=== PATIENT | male | born 1970 | race Two or more races ===

== ENCOUNTER 2020-07-08 19:18 | Inpatient (IN) | payer OTHER ==
[~2020-07-08] VITALS: Ht 175.3 cm; Wt 154.2 kg
--- NOTE | 2020-07-08 19:45 | NUR ---
SE RECIBE PACIENTE ALERTA, ORIENTADO X 3 ESFERAS REFIERE TENER FIEBRE, TOS Y DIFICULTAD RESPIRATORIA.
--- NOTE | 2020-07-08 22:08 | NUR ---
SE ORIENTA PTE SOBRE TX MEDICO EL CUAL REFIERE ENTENDER.SE LE EXTRAEN MUESTRAS,SE CANALIZA Y SE NOTIFICA PLACA PENDIENTE,SE NOTIFICAN ABG A ISAURA.
--- NOTE | 2020-07-09 07:47 | NUR ---
SE RECIBE MASCULINO ALERTA Y ORIENTADA POR ERICK ESFERAS,EN BELINDA CON BARANDAS SGEURAS Y ELEVADAS. AREA DE VENOPUNCION ANIRUDH DE EDEMA O ENROJECIMIENTO. SE MANTIENE EN ESPERA DE MEDICO CONSULTADO DR XAVIRE PTE SE MANTIENE EN OBSERVACION Y BAJO TRATAMIENTO
[2020-07-20] MEDS ORDERED: LOSARTAN-HCTZ1 EAC2 PO (18:02)
[2020-07-20] MEDS ORDERED: NIFEDIPINE ER30 MG PO (18:03)
== END 2020-07-20 18:22 | disposition home or self-care (01) | DRG 179 ==
LOC: ER 19:18 → SEC-K 07-09 11:26 → MEDJ 07-09 11:26 → MEDI 07-09 11:39 → MEDJ 07-09 11:39
PROVIDERS: ADMIT Internal Medicine; ATTEND Internal Medicine
PROC: 3E0F7SF Introduction of Other Gas into Respiratory Tract, Via Natural or Artificial Opening (ICD-10-PCS; 2020-07-09)
PROC: 4A12X4Z Monitoring of Cardiac Electrical Activity, External Approach (ICD-10-PCS; 2020-07-09)
PROC: 4A033R1 Measurement of Arterial Saturation, Peripheral, Percutaneous Approach (ICD-10-PCS; principal; 2020-07-12)
PROC: 02HV33Z Insertion of Infusion Device into Superior Vena Cava, Percutaneous Approach (ICD-10-PCS; 2020-07-12)
DX: U07.1 COVID-19 (principal); E66.01 Morbid (severe) obesity due to excess calories; R09.02 Hypoxemia; I10 Essential (primary) hypertension

== ENCOUNTER 2023-07-28 00:38 | Emergency (ER) | payer OTHER ==
[~2023-07-28] VITALS: Ht 167.6 cm; Wt 181.4 kg
[~2023-07-28 00:38] MED LIST: LOSARTAN-HCTZ1 EAC2 PO; NIFEDIPINE ER30 MG PO
[2023-07-28 02:02] LABS: ABG PH 7.403 (7.35-7.45); ABG PO2 65.3 mmHg (80-100); BASE EXCESS -1.3 mmol/l; BICARBONATE 23.1 mmol/l (23-25); SaO2 92.5 %; Tco2 24.3 mmol/l; o2 21 %
[2023-07-28 02:03] LABS: allen test SATISFACTORY; puncture site RADIAL RIGHT
[2023-07-28] MEDS ORDERED: PEPCID40 MG PO (05:33)
[2023-07-28] MEDS ORDERED: BENADRYL25 MG PO (05:33)
[2023-07-28] MEDS ORDERED: MEDROL8 MG PO (05:33)
== END 2023-07-28 05:39 ==
LOC: ER 00:39
PROVIDERS: General Practice
DX: T78.40XA Allergy, unspecified, initial encounter (principal)

== ENCOUNTER 2023-11-16 13:34 | Emergency (ER) | payer OTHER ==
[~2023-11-16] VITALS: Ht 175.3 cm; Wt 161.0 kg
[~2023-11-16 13:34] MED LIST changes: +BENADRYL25 MG PO; +MEDROL8 MG PO; +PEPCID40 MG PO
[2023-11-16] MEDS ORDERED: ACETAMINOPHEN 500 MG GEL..CAP PO STA (16:23)
[2023-11-16] MEDS ORDERED: DEXAMETHASONE SODIUM PHOSPHATE 4 MG/ML VIAL IM STA (16:23)
[2023-11-16] MEDS ORDERED: DIPHENHYDRAMINE HCL 50 MG/ML VIAL 1ML IM STA (16:24)
== END 2023-11-16 21:05 | disposition home or self-care (01) ==
LOC: ER 13:34
DX: R51.9 Headache, unspecified (principal); I10 Essential (primary) hypertension; M10.9 Gout, unspecified; J32.8 Other chronic sinusitis

== ENCOUNTER 2025-04-26 16:22 | Emergency (ER) | payer OTHER ==
[~2025-04-26] VITALS: Ht 175.3 cm; Wt 161.0 kg
[2025-04-26] MEDS ORDERED: CEFTRIAXONE SODIUM 2,000 MG VIAL IV STA (17:22)
[2025-04-26 18:44] LABS: BASO % 0.2 % (0.1-1.2); EOS # 0.25 (0.04-0.54); EOS % 2.7 % (0.7-7.0); LYMPH # 1.55 (1.18-3.74); LYMPH % 16.8 % (19.3-53.1); MEAN PLATELET VOLUME 10.10 fl (9.4-12.4); MONO # 1.04 (0.24-0.82); MONO % 11.2 % (4.7-12.5); NEUT # 6.37 (1.56-6.13); NEUT % 68.9 % (34.0-71.1); RED CELL DISTRIBUTION WIDTH 12.9 % (11.6-14.4)
[2025-04-26 19:35] LABS: ALT/SGPT 30.0 U/L (12-78); AST/SGOT 15.0 U/L (15-37); BILIRUBIN TOTAL 0.5 mg/dL (0.3-1.2); BUN CREA RATIO 14.0 (7.0-25.0); CREATININE SERUM 1.1 mg/dL (0.70-1.30); GFR 70.02; GLOBULINA 3.6 G/DL (2.4-3.5); GLUCOSE FASTING 108.0 mg/dL (65-100); OSMOLALITY SERUM 286.0 MOSM/KG (275-295)
[2025-04-26 21:13] LABS: URINE APPEARANCE Clear; URINE BILIRRUBIN Negative (NEGATIVE); URINE BLOOD Negative; URINE COLOR Yellow; URINE GLUCOSE Negative (NEGATIVE); URINE KETONE Trace (NEGATIVE); URINE LEUKOCYTE Negative; URINE NITRATE Negative; URINE PROTEIN Trace (NEGATIVE); URINE UROBILINOGEN 0.2 E.U./dl
[2025-04-26 21:17] LABS: URINE BACTERIA 6.0 uL (0.0-1933); URINE EPITHELIAL CELLS 4.6 uL (0.0-38.8); URINE RBC 6.0 uL (0.0-20.8); URINE WBC 7.8 uL (0.0-23.2)
[2025-04-26 21:56] LABS: TYPE CELLS SQUAMOUS; URINE CAST 0.73 uL (0.0-1.40)
== END 2025-04-26 21:10 | disposition home or self-care (01) ==
LOC: ER 16:22
PROVIDERS: General Practice
DX: L03.818 Cellulitis of other sites (principal)